=== PATIENT | female | born 1995 | race Two or more races ===

== ENCOUNTER 2025-03-07 13:56 | Emergency (ER) | payer MEDICAID, SELFPAY ==
[2025-03-07 14:44] VITALS: BP 121/84; PULSE 56; RESP 16; TEMP 36.1; O2SAT 100; BMI 23.8
--- NOTE | 2025-03-07 15:06 | PD.EDRME ---
Rapid Medical Screening Exam RME Arrival date/time: 03/07/25 13:56 This is a 29-year-old female that comes in with complaints of abdominal pain nausea vomiting and diarrhea. Patient denies urinary symptoms. Patient has a history of methamphetamine use. I have greeted and performed a focused initial assessment of this patient. Initial appropriate labs ordered at this time. A comprehensive ED assessment and evaluation of the patient and analysis of all test and completion of medical decision making process will be conducted by additional ED provider. Chief Complaint: Nausea/Vomiting/Diarrhea Time Seen by Provider: 03/07/25 14:30 Vital signs: Vital Signs Temperature 97.0 F 03/07/25 14:44 Pulse Rate 56 L 03/07/25 14:44 Respiratory Rate 16 03/07/25 14:44 Blood Pressure 121/84 03/07/25 14:44 Pulse Oximetry (%) 100 03/07/25 14:44 Oxygen Delivery Method Room Air 03/07/25 14:44
[2025-03-07] MEDS: HYDROcodone/APAP 10/325 TAB PO ×2 (15:25→22:38)
[2025-03-07 15:31] LABS: Basophils % (Auto) 0 % (0-2.5); Eosinophils # (Auto) 0.1 Thou/mm3 (0.0-0.5); Eosinophils % (Auto) 0 % (0-10); Hematocrit 34.9 % (36.0-46.0); Hemoglobin 12.1 g/dL (12.0-16.0); Immature Granulocytes % (Auto) 0 % (0-0); Immature Granulocytes Auto 0.04 Thou/mm3 (0.00-0.00); Lymphocytes # (Auto) 1.5 Thou/mm3 (1.0-4.8); Lymphocytes % (Auto) 14 % (10-50); Mean Corpuscular HGB Conc 34.7 g/dl (31.0-37.0); Mean Corpuscular Hemoglobin 30.2 pg (25.0-35.0); Mean Corpuscular Volume 87 fL (80-100); Monocytes # (Auto) 0.3 Thou/mm3 (0.0-0.8); Monocytes % (Auto) 3 % (0-12); Neutrophils # (Auto) 9.4 Thou/mm3 (1.8-7.7); Neutrophils % (Auto) 83 % (37-80); Nucleated Red Blood Cell % 0 /100 WBC (0); Platelet Count 260 Thou/mm3 (140-440); RDW Standard Deviation 43.7 fL (36.4-46.3); Red Blood Count 4.01 Miln/mm3 (4.00-5.20); White Blood Count 11.4 Thou/mm3 (3.6-11.0)
[2025-03-07 15:43] LABS: HCG,Qualitative Serum Negative
[2025-03-07 16:01] LABS: Alanine Aminotransferase 7 U/L (10-49); Albumin/Globulin Ratio 1.5 (1.2-2.2); Alkaline Phosphatase 79 U/L (46-116); Anion Gap 8 (7-16); Aspartate Amino Transferase 14 U/L (0-34); BUN/Creatinine Ratio 14 Ratio (12-20); Bilirubin,Total 0.3 mg/dL (0.3-1.2); Blood Urea Nitrogen 10 mg/dL (9-23); Carbon Dioxide 28.5 mMol/L (20.0-31.0); Chloride 103 mMol/L (98-107); Creatinine (Component) 0.7 mg/dL (0.6-1.3); Estimated Creatinine Clearance 87.9 mL/min (>60); Globulin 2.7 gm/dL (2.3-3.5); Glucose 154 mg/dL (74-106); Lipase 33 U/L (12-53); Osmolality,Calculated 279 (275-295); Potassium 3.6 mMol/L (3.4-5.1); Sodium 139 mMol/L (136-145); Total Protein 6.7 gm/dL (5.7-8.2); eGFR > 60 See Note
[2025-03-07 16:35] LABS: Collection Type, Urine Voided
[2025-03-07 16:48] LABS: Amorphous Crystals,Urine Present (Absent); Bilirubin,Urine Negative (Negative); Blood,Urine Negative (Negative); Clarity,Urine Turbid (Clear/Hazy); Color,Urine Yellow (Lt Yel-Yel); Culture Indicated,Urine Contaminated; Glucose, Urine Negative (Negative); Ketones,Urine 1+ (Negative); Leukocyte Esterase,Urine Negative (Negative); Nitrite,Urine Positive (Negative); PH,Urine 8.5 (5.0-7.0); Protein,Urine 1+ (Neg - Trace); RBC,Urine 2 /hpf (0-3); Specific Gravity,Urine 1.031 (1.001-1.035); Squamous Epithelial Cell,Urine 14 /hpf (0-5); WBC,Urine 3 /hpf (0-5)
[2025-03-07 16:57] LABS: Amphetamine/Methamp Scrn,U Positive (Negative); Barbiturate Screen,Urine Negative (Negative); Benzodiazepines Screen,Urine Negative (Negative); Benzoylecgonine Screen, Ur Negative (Negative); Fentanyl Screen,Urine Negative (Negative); Opiate Screen,Urine Negative (Negative); THC Screen,Urine Positive (Negative)
--- NOTE | 2025-03-07 18:43 | XR_ITS ---
Examination: Abdomen sonogram, Limited Date and time of exam: March 07, 20252051 hours INDICATIONS: Right upper abdominal pain nausea vomiting today Technique: Real-time camacho scale transabdominal sonographic images of the upper abdomen obtained. Findings: Cholelithiasis Normal gallbladder wall Normal common bile duct 0.2 cm Pancreatic head 2.0 cm Liver 11.8 cm no focal liver lesions Normal hepatopedal portal venous flow Patent IVC IMPRESSION: Cholelithiasis, negative for cholecystitis
[2025-03-07] MEDS: ONDANSETRON ODT 4 MG TABRAP PO (18:49)
[2025-03-07] MEDS: KETOROLAC INJ 60 MG/2 ML VIAL 30 MG IM (18:50)
[2025-03-07 19:22] LABS: HCG Qualitative,Urine Negative
--- NOTE | 2025-03-07 19:45 | PD.EDNV ---
Nausea/Vomit./Diarrhea-RME/HPI General Chief complaint: Nausea/Vomiting/Diarrhea Stated complaint: Vomiting and diarrhea today, fever Time Seen by Provider: 03/07/25 14:30 Arrival date/time: 03/07/25 13:56 29-year-old female presents to the ED with a complaint of right upper quadrant abdominal pain, nausea and vomiting. She has vomited 4 times since 5:00 this morning. She has had 1 bout of diarrhea. She denies any urinary frequency or dysuria. RME / HPI RME / HPI Narrative: 03/07/25 13:56 This is a 29-year-old female that comes in with complaints of abdominal pain nausea vomiting and diarrhea. Patient denies urinary symptoms. Patient has a history of methamphetamine use. I have greeted and performed a focused initial assessment of this patient. Initial appropriate labs ordered at this time. A comprehensive ED assessment and evaluation of the patient and analysis of all test and completion of medical decision making process will be conducted by additional ED provider. Related Data Previous Rx's ?Medication ?Instructions ?Recorded cephalexin 500 mg capsule 500 mg PO QID #28 caps 09/29/22 Allergies Allergy/AdvReac Type Severity Reaction Status Date / Time No Known Allergies Allergy Verified 03/07/25 14:00 Review of Systems Review of Systems Systems Reviewed: All systems reviewed, normal except as documented Past Medical History Past Medical History CARDIAC: Negative Congestive Heart Failure RESPIRATORY: Negative Chronic Obstructive Pulmonary Disease (COPD) GENITOURINARY: Negative Renal Disease ENDOCRINE: Negative Diabetes Mellitus Type 1 or Diabetes Mellitus Type 2 Social History SMOKING STATUS: Current every day smoker ED Exam Narrative Physical exam: Alert and oriented 29-year-old female, mild acute pain distress, requesting pain medications lungs are clear, regular rate and rhythm without murmurs. Vital signs blood pressure 121/84, pulse 56, respirations 16 nonlabored, temperature 97.0, O2 sat 100% on room air. Bowel sounds present x 4, abdomen is soft with mild right upper quadrant tenderness. No rebound or guarding. There is no right lower quadrant tenderness. Course Course Course Narrative: Influenza A and B are both negative. COVID is negative. CBC reveals a mildly elevated white count of 11.4, normal platelets, elevated ANC at 9.4. Chemistry panel reveals normal renal function, elevated glucose at 154, normal LFTs, normal lipase at 33. Urinalysis reveals turbid yellow urine with a specific gravity of 1.031 with 1+ protein, 1+ ketones, positive nitrites, negative leukocyte Estrace, 3 WBCs, 14 squamous epithelial cells and no bacteria. Urine hCG is negative. Urine tox screen is positive for marijuana and methamphetamine. Patient was given hydrocodone 10 mg p.o. x 2 tablets as well as Toradol 30 mg IM and Zofran 4 mg p.o. Quality Measures none Orders Category Date Time Status Bedside Influenza A&B Antigen Test NOW Care 03/07/25 15:02 Completed Bedside Influenza A&B Antigen Test NOW Care 03/07/25 18:45 Completed US abdomen limited Stat Exams 03/07/25 18:43 Completed CBC Stat Lab 03/07/25 15:14 Completed COVID-19 Antigen (In-House) Stat Lab 03/07/25 20:10 Completed Comprehensive Metabolic Panel Stat Lab 03/07/25 15:14 Completed Drug Screen,Urine Stat Lab 03/07/25 15:41 Completed HCG Qualitative,Urine Stat Lab 03/07/25 15:41 Completed HCG,Qualitative Serum Stat Lab 03/07/25 15:14 Completed Lipase Stat Lab 03/07/25 15:14 Completed Urinalysis, C/S if Indicated Stat Lab 03/07/25 15:41 Completed HYDROcodone/APAP 10/325 [[place] 10/325] Med 03/07/25 15:19 Discontinued 1 tab PO X1 ONE HYDROcodone/APAP 10/325 [[place] 10/325] Med 03/07/25 22:28 Discontinued 1 tab PO X1 ONE Ketorolac Inj [Toradol Inj] Med 03/07/25 18:41 Discontinued 30 mg IM X1 ONE Ondansetron Odt [Zofran Odt] Med 03/07/25 18:44 Discontinued 4 mg PO X1 ONE Vital Signs Vital signs: Vital Signs Temperature 97.0 F 03/07/25 14:44 Pulse Rate 56 L 03/07/25 14:44 Respiratory Rate 16 03/07/25 14:44 Blood Pressure 121/84 03/07/25 14:44 Pulse Oximetry (%) 100 03/07/25 14:44 Oxygen Delivery Method Room Air 03/07/25 14:44 Nausea/Vomiting/Diarrhea MDM Narrative MDM Narrative:: This is a 29-year-old female that comes in with complaints of abdominal pain nausea vomiting and diarrhea. Patient denies urinary symptoms. Patient has a history of methamphetamine use. I have greeted and performed a focused initial assessment of this patient. Initial appropriate labs ordered at this time. A comprehensive ED assessment and evaluation of the patient and analysis of all test and completion of medical decision making process will be conducted by additional ED provider. Alert and oriented 29-year-old female, mild acute pain distress, requesting pain medications lungs are clear, regular rate and rhythm without murmurs. Vital signs blood pressure 121/84, pulse 56, respirations 16 nonlabored, temperature 97.0, O2 sat 100% on room air. Bowel sounds present x 4, abdomen is soft with mild right upper quadrant tenderness. No rebound or guarding. There is no right lower quadrant tenderness. Influenza A and B are both negative. COVID is negative. CBC reveals a mildly elevated white count of 11.4, normal platelets, elevated ANC at 9.4. Chemistry panel reveals normal renal function, elevated glucose at 154, normal LFTs, normal lipase at 33. Urinalysis reveals turbid yellow urine with a specific gravity of 1.031 with 1+ protein, 1+ ketones, positive nitrites, negative leukocyte Estrace, 3 WBCs, 14 squamous epithelial cells and no bacteria. Urine hCG is negative. Urine tox screen is positive for marijuana and methamphetamine. Patient was given hydrocodone 10 mg p.o. x 2 tablets as well as Toradol 30 mg IM and Zofran 4 mg p.o. Patient data External records reviewed:: [facility] [place] previous records Clinical information provided by:: patient Social determinants that could affect healthcare access:: substance use Patient has the following chronic illnesses:: N/A How is presenting disease/condition affected by chronic disease/condition?: no chronic disease Evaluation data The following diagnostics were reviewed and interpreted by me:: lab results and radiology exam(s) Lab and/or radiology exams considered but not ordered:: N/A Interpretation Summary: Abdominal ultrasound: Cholelithiasis, negative for cholecystitis. Medications / Prescriptions Medications / Prescriptions considered but not ordered:: N/A Medication administrations:: Medication Administration History Discontinued Medications Hydrocodone Bitart/Acetaminophen (Hydrocodone/Apap 10/325 Tab) 1 tab PO X1 ONE Stop: 03/07/25 15:20 Last Admin: 03/07/25 15:25 Dose: 1 tab Documented By: LILIAM Hydrocodone Bitart/Acetaminophen (Hydrocodone/Apap 10/325 Tab) 1 tab PO X1 ONE Stop: 03/07/25 22:29 Last Admin: 03/07/25 22:38 Dose: 1 tab Documented By: STUART Ketorolac Tromethamine (Ketorolac Inj 60 Mg/2 Ml Vial) 30 mg IM X1 ONE Stop: 03/07/25 18:42 Last Admin: 03/07/25 18:50 Dose: 30 mg Documented By: LILIAM Ondansetron HCl (Ondansetron Odt 4 Mg Tabrap) 4 mg PO X1 ONE; Protocol Stop: 03/07/25 18:45 Last Admin: 03/07/25 18:49 Dose: 4 mg Documented By: LILIAM Hydrocodone 10 mg p.o., Toradol 30 mg IM, Zofran 4 mg p.o., hydrocodone 10 mg p.o. Consultations Consultation(s) initiated? (list below): No Diagnosis Nausea Differential Diagnosis: gastroenteritis, drug-induced nausea and vomiting, dehydration and other (Cholelithiasis, cholecystitis) Most likely diagnosis given after review of the tests above:: Cholelithiasis without cholecystitis Admission Indicated Admission indicated?: not indicated Explain why admission is indicated or not indicated:: Patient is stable for discharge. Admission Request Was there a request for admission?: No Disposition Plan Disposition Plan: Discharge Discharge Attestation Discharge Attestation: The patient and all family members were given an opportunity to ask questions and understood the discharge instructions. Discharge instructions specifically effects, indications for sooner follow up or return to the emergency department, and the expected course of current diagnosis. Patient condition: Stable Discharge Plan Plan Patient Disposition: HOME (Self Care) Discharge Disposition comment: Stable and improved Prescriptions/Referrals Prescriptions/Med Rec: No Action cephalexin 500 mg capsule 500 mg PO QID Qty: 28 0RF Referrals: No Primary/Family,Physician [Primary Care Provider] - In 1 week Problem List Clinical Impression: Cholelithiasis Patient/Caregiver Discharge Instructions Education Materials: ED Gallstones with Biliary Colic Additional Instructions: Follow a nonfat diet to help control the pain. Follow-up with your primary care physician for referral to a surgeon for elective cholecystectomy/gallbladder removal. Return to the ED for any new or worsening symptoms. Print Language: Romanian Stand Alone Forms: [facility]anta Award Info., Patient Portal Info Letter PA/GE Supervising Physician PA/GE Supervising Physician: Dr Jasso
[2025-03-07 20:42] LABS: COVID-19 Antigen (In-House) Negative (Negative)
== END 2025-03-07 22:42 | disposition home or self-care (01) ==
PROVIDERS: Nurse Practitioner Family; Physician Assistant; Emergency Provider Emergency Medicine
DX: K80.20 Calculus of gallbladder without cholecystitis without obstruction (principal)
CPT/HCPCS: 36415; 76705; 80053; 80307; 81001; 81025; 83690; 84703; 85025; 87400; 87811; 96372; 99284; J1885; Q0162; A9270

== ENCOUNTER 2025-08-06 07:45 | Day surgery (SDC) | payer MEDICAID, SELFPAY ==
[2025-08-05 09:26] VITALS: BMI 27.8
[2025-08-05 10:19] LABS: Basophils # (Auto) 0.0 Thou/mm3 (0.0-0.2); Basophils % (Auto) 1 % (0-2.5); Eosinophils # (Auto) 0.3 Thou/mm3 (0.0-0.5); Eosinophils % (Auto) 5 % (0-10); Hematocrit 38.2 % (36.0-46.0); Hemoglobin 12.3 g/dL (12.0-16.0); Immature Granulocytes Auto 0.02 Thou/mm3 (0.00-0.00); Lymphocytes # (Auto) 2.3 Thou/mm3 (1.0-4.8); Lymphocytes % (Auto) 33 % (10-50); Mean Corpuscular HGB Conc 32.2 g/dl (31.0-37.0); Mean Corpuscular Hemoglobin 27.9 pg (25.0-35.0); Mean Corpuscular Volume 87 fL (80-100); Monocytes # (Auto) 0.5 Thou/mm3 (0.0-0.8); Monocytes % (Auto) 7 % (0-12); Neutrophils # (Auto) 3.9 Thou/mm3 (1.8-7.7); Neutrophils % (Auto) 55 % (37-80); Nucleated Red Blood Cell # 0.00 Thou/mm3 (0.00-0.00); Nucleated Red Blood Cell % 0 /100 WBC (0); Platelet Count 281 Thou/mm3 (140-440); RDW Standard Deviation 47.1 fL (36.4-46.3); Red Blood Count 4.41 Miln/mm3 (4.00-5.20); White Blood Count 7.0 Thou/mm3 (3.6-11.0)
[2025-08-05 10:35] LABS: Alanine Aminotransferase 16 U/L (10-49); Albumin, Serum 4.5 gm/dL (3.5-5.0); Albumin/Globulin Ratio 1.6 (1.2-2.2); Alkaline Phosphatase 69 U/L (46-116); Anion Gap 8 (7-16); Aspartate Amino Transferase 17 U/L (0-34); BUN/Creatinine Ratio 16 Ratio (12-20); Bilirubin,Total 0.3 mg/dL (0.3-1.2); Blood Urea Nitrogen 11 mg/dL (9-23); Calcium 9.6 mg/dL (8.3-10.6); Calcium (Corrected) 9.6 mg/dL (8.5-10.1); Carbon Dioxide 24.4 mMol/L (20.0-31.0); Chloride 109 mMol/L (98-107); Creatinine (Component) 0.7 mg/dL (0.6-1.3); Estimated Creatinine Clearance 101.0 mL/min (>60); Globulin 2.9 gm/dL (2.3-3.5); Glucose 78 mg/dL (74-106); Osmolality,Calculated 279 (275-295); Potassium 4.1 mMol/L (3.4-5.1); Sodium 141 mMol/L (136-145); Total Protein 7.4 gm/dL (5.7-8.2); eGFR > 60 See Note
[2025-08-05 10:51] LABS: HCG,Qualitative Serum Negative
[2025-08-06] VITALS (9 sets, daily range): BP systolic 91–114; BP diastolic 60–85; PULSE 62–82; RESP 14–20; TEMP 36.3–36.9; O2SAT 98–100; BMI 27.3
--- NOTE | 2025-08-06 10:18 | PD.SUROPNT ---
Date of Procedure 08/06/25 Pre Op Diagnosis Symptomatic cholelithiasis Post Op Diagnosis Cholelithiasis with cholecystitis Procedure Laparoscopic cholecystectomy Findings Moderately distended gallbladder filled with stones and chronic cholecystitis Procedure Description Patient was brought into the operating room in supine position. After administration of general endotracheal anesthesia abdomen was prepped and draped in standard surgical manner. A Veress needle was inserted through the umbilicus and pneumoperitoneum was obtained up to 15 mmHg. The Veress needle was then removed, a 5 mm infraumbilical incision was made and the 5mm trocar was inserted. Laparoscopic camera was placed. Under direct visualization a laparoscopic camera a 10 mm trocar was placed in subxiphoid and two 5 mm trocars placed in right upper quadrant. The gallbladder was identified and was noted to be moderately distended filled with gallstones and chronic cholecystitis. It was retracted cephalad and laterally. Dissection started near the infundibulum of gallbladder where cystic duct and gallbladder junction clearly identified. The cystic duct was circumferentially dissected off the peritoneum and surrounding inflammatory tissue. The critical view of safety was clearly demonstrated. Cystic duct was then divided between 2 endoclips proximally and one distally. The cystic artery was similarly dissected and divided. The gallbladder was then from the liver bed using electrocautery. The gallbladder was then placed inside an Endo Catch and removed from the abdomen utilizing subxiphoid trocar site. The area was copiously and thoroughly washed and irrigated, all the fluid was suctioned and the suction fluid returned clear. Hemostasis achieved using electrocautery. Endoclips noted be in place and intact without any bleeding or any leakage. Hemostasis was adequate and satisfactory. The subxiphoid trocar sites fascial defect was closed with 0 Vicryl using Endo Closure device. Instruments and trocars removed, pneumoperitoneum was evacuated and the incisions closed with 4-0 Monocryl in subcuticular fashion. Instrument needle and sponge counts were all reported to be correct X2. Patient tolerated the procedure well, was extubated, breathing spontaneously and without difficulty and was transferred to postanesthesia care in stable condition. Anesthesia GETA and local Pathology / specimen Other (Gallbladder and contents) Estimated Blood Loss 10 Condition Stable Disposition PACU Surgeon Vik Zhang MD Surgical Staff Operation Date: 08/06/25 10:00 Case Staff Anesthesiologist: Kory Sparrow RN First Assistant: Ysabel Orta
--- NOTE | 2025-08-06 10:30 | SUR.PHASEI ---
1020: Pt received in [facility] via gurney. Report from Hunter SHUKLA and Derrell KUMAR. Oral airway in place. Resp even, unlabored. VS stable. Surgical sites x4 to abdomen secured with dermabond. 1030: Oral airway dc'd. Resp even, unlabored.
[2025-08-06] MEDS: MORPHINE SULF INJ 4 MG/ML VIAL 3 MG IV (10:56)
[2025-08-06] MEDS: ONDANSETRON INJ 2 MG/ML INJ 2 ML 4 MG IVP (11:02)
--- NOTE | 2025-08-06 11:23 | SUR.PHASEI ---
1045: Pt has been resting with no complaints voiced. Resp even, unlabored. VS stable. Surgical sites x4 to abdomen dry, clean, intact with no swelling, discoloration. Denies pain.
--- NOTE | 2025-08-06 11:24 | SUR.PHASEII ---
1056: Pt more awake. Has complaints of pain to abdomen. Rates pain level 6/10. Resp even, unlabored. VS stable. Pain medication given per order. 1102: Pt has c/o nausea. Zofran given per order. 1127: Pt states pain level down and nausea has subsided. 1130: Pt tolerating po ice chips with no difficulty swallowing and no n/v.
--- NOTE | 2025-08-06 12:33 | SUR.PHASEII ---
1147: Pt fully awake, oriented x3. VS stable. Denies pain, nausea. Surgical sites remain dry, clean, intact with no swelling, discoloration. Pt dressed. Assisted to transport chair. Ambulation steady. Pt and boyfriend stated understanding of discharge instructions. Pt also instructed to parts picker her prescriptions at [facility]. Pt discharged from [facility] in stable condition.
== END 2025-08-06 11:47 | disposition home or self-care (01) ==
PROVIDERS: PCP Family Medicine; Referring Provider Surgery; Visit Provider Surgery
PROC: 0FT44ZZ Resection of Gallbladder, Percutaneous Endoscopic Approach (ICD-10-PCS; CPT 47562; principal; 2025-08-06 09:45)
DX: K80.10 Calculus of gallbladder with chronic cholecystitis without obstruction (principal)
CPT/HCPCS: 47562; 36415; 80053; 84703; 85025; A4217; A4649; J0131; J0694; J1100; J1885; J2250; J2270; J2405; J2704; J3010; J3490